=== PATIENT | female | born 1930 | race Caucasian/White ===

== ENCOUNTER 2016-04-19 10:27 | Emergency (ER) | payer MEDICARE ==
[2016-04-19 10:40] VITALS: TEMP 98.3; BMI 32.3
[2016-04-19] MEDS ORDERED: HYDROCODONE 5 MG/ACETAMIN 325 MG TAB PO ONE (10:45)
--- NOTE | 2016-04-19 10:47 | EDPRACDOC ---
- General Chief Complaint: Facial Injury Stated Complaint: FALL: NOSE INJURY Time Seen by Provider: 04/19/16 10:44 - History of Present Illness Onset: 0800 HPI: TRIPPED; FELL AND INJURED NOSE; NO LOC; NO ANTICOAGS Pain Severity: Reports: Mild Injuries/Pain Location: Reports: face Reason for Fall: Reports: lost balance, tripped Loss of Consciousness: no loss of consciousness Associated Symptoms (Fall): Reports: denies symptoms Allergies/Adverse Reactions: Allergies Penicillins Allergy (Mild, Verified 04/19/16 10:33) RAsh oxycodone HCl [From Percocet] Allergy (Verified 04/19/16 10:33) Rash-Generalized tramadol Allergy (Verified 04/19/16 10:33) Nausea/Vomiting Home Medications: Ambulatory Orders Atenolol 25 mg PO DAILY 12/07/14 Olmesartan [Benicar] 20 mg PO DAILY 12/07/14 Pregabalin [Lyrica] 150 mg PO BID 12/07/14 Simvastatin 10 mg PO HS 12/07/14 Acetaminophen [Arthritis Pain Relief] 1,300 mg PO BID PRN 03/03/15 Calcium Carbonate/Vitamin D3 [Calcium 600-Vit D3 800 Tablet] 1 each PO DAILY Diphenhydramine HCl [Ez Nite Sleep] 25 mg PO HS 03/03/15 Flaxseed Oil 1,000 mg PO DAILY 03/03/15 Multivit-Min/FA/Lycopene/Lut [Centrum Silver Tablet] 1 each PO DAILY 03/03/15 Naproxen Sodium [Aleve] 220 mg PO BID PRN 03/03/15 Aspirin [Aspirin EC] 81 mg PO DAILY 04/19/16 Azelastine HCl 2 spray CHRIS BID 04/19/16 Hydrocodone Bit/Acetaminophen [Lortab 5/325] 1 tab PO Q6H PRN #14 tab 04/19/16 Meclizine HCl 12.5 mg PO TID 04/19/16 ED Past Medical History - History Reviewed Yes Nurses notes reviewed and agree except as marked - Patient Medical History Cardiac History: Reports: Hypertension, Hypercholesterolemia, Valvular Heart Disease Respiratory History: Reports: COPD (CHRONIC BRONCHITIS), Pneumonia (2012) GI/ History: Reports: Urinary Tract Infection, Gastroesophageal Reflux, Pancreatitis Musculoskeletal History: Reports: Arthritis, Osteoarthritis Psychological History: Reports: Depression (after , off med now), Anxiety. 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 Back surgery. 2nd toe L foot removed.) - Family Medical History Reports: Cancer (Father: cancer unknown site), Cardiac Disorders (Mother: CHF.) . Denies: Hypertension, Diabetes, Stroke - Social Medical History Smoking Status: Former smoker Social History: Denies: Substance Use Disorder EDM Review of Systems - Review of Systems ROS Negative Except as Marked: Yes All systems reviewed and were negative except as marked - Physical Exam Constitutional: Alert (Awake), No apparent distress Oriented to: Time, Person, Place Last recorded Vital Signs: Last Vital Signs Temp 98.3 F 04/19/16 10:33 Pulse 78 04/19/16 10:33 Resp 20 04/19/16 10:33 BP 190/91 H 04/19/16 10:33 Pulse Ox 96 04/19/16 10:33 Oxygen Pulse Oxygen Saturation 96 O2 Device Room Air Oxygen Flow Rate Fraction of Inspired Oxygen ( FIO2) - HEENT Head: Normal ( normocephalic) Eye Exam: Normal (PERRL, EOMI, Sclera white) Oropharynx: Normal (Pharynx:Moist without exudate,Gums-no swelling) Tympanic Membrane: Normal ENT EAC: Normal TMJ: Normal Nose: Swelling Neck: Normal (FROM, trachea at midline) - Respiratory/Cardiovascular Respiratory: Normal - CTA (BBS clear to auscultation without adventitious sounds ) Cardiovascular: Normal (RRR without murmur, gallop or rub) - GI Auscultation: Normal (NABS) Palpation: Normal (Soft,No rebound or guarding, non distended) Tenderness: Non tender Bhardwaj's Sign: Negative - Musculoskeletal Back: Normal (Non-Tender) Extremities: Normal (Normal tone, Pulses 2+ No cyanosis or edema, FROM) - Integumentary Skin: Normal, Warm, Dry Lymphatics: Normal (no adenopathy) - Neurologic Memory Impaired: Normal Motor Function: Normal (Normal tone, Pulses 2+ No cyanosis or edema, FROM) Cranial Nerve: Normal (CN II-X11 intact sensation, strength 5/5) Cerebellar: Normal Mood Description: Normal Perception: Normal Decision Time to Discharge: 11:51 - Departure Yes I personally saw and evaluated the patient. Disposition: Home Condition: Good Final Diagnosis: NASAL FX Instructions: Nasal Fracture (ED) Education/Counseling Given To: Patient, Family Member Education/Counseling Given Regarding: Diagnosis, Treatment, Prognosis Referrals: Reji Phillips II, MD [Primary Care Provider] - One Week Prescriptions: New Hydrocodone Bit/Acetaminophen [Lortab 5/325] 1 tab PO Q6H PRN #14 tab PRN Reason: Pain No Action Pregabalin [Lyrica] 150 mg PO BID Atenolol 25 mg PO DAILY Simvastatin 10 mg PO HS Olmesartan [Benicar] 20 mg PO DAILY Naproxen Sodium [Aleve] 220 mg PO BID PRN PRN Reason: Pain Flaxseed Oil 1,000 mg PO DAILY Multivit-Min/FA/Lycopene/Lut [Centrum Silver Tablet] 1 each PO DAILY Acetaminophen [Arthritis Pain Relief] 1,300 mg PO BID PRN PRN Reason: Pain Diphenhydramine HCl [Ez Nite Sleep] 25 mg PO HS Calcium Carbonate/Vitamin D3 [Calcium 600-Vit D3 800 Tablet] 1 each PO DAILY Meclizine HCl 12.5 mg PO TID Aspirin [Aspirin EC] 81 mg PO DAILY Azelastine HCl 2 spray CHRIS BID
--- NOTE | 2016-04-19 11:43 | DIRPT ---
CLINICAL DATA: Tripped over coffee table 8 a.m. this morning, fall, neck pain EXAM: CERVICAL SPINE - COMPLETE 4+ VIEW COMPARISON: 07/24/2011 FINDINGS: Five views of the cervical spine submitted. No acute fracture. There is mild anterior spurring lower endplate of C2 and C3 vertebral body. Again noted about 4 mm anterolisthesis C3 on C4 vertebral body. Stable disc space flattening at C3-C4 level. Again noted moderate disc space flattening at C4-C5 level. Mild anterior spurring lower endplate of C4. There is moderate disc space flattening with mild anterior spurring at C5-C6 level. There is minimal about 2 mm anterolisthesis C6 on C7 vertebral body. Mild to moderate disc space flattening at C6-C7 level. No prevertebral soft tissue swelling. Cervical airway is patent. Mild degenerative changes C1-C2 articulation. IMPRESSION: No acute fracture. Again noted about 4 mm anterolisthesis C3 on C4 vertebral body. There is a about 2 mm anterolisthesis C6 on C7 vertebral body. Multilevel degenerative changes as described above. No prevertebral soft tissue swelling. Electronically Signed By: Girish Decker M.D. On: 04/19/2016 11:40
--- NOTE | 2016-04-19 11:44 | DIRPT ---
CLINICAL DATA: Status post fall. Nose pain. EXAM: NASAL BONES - 3+ VIEW COMPARISON: None. FINDINGS: There is a mildly displaced left nasal bone fracture. There is no other fracture. The paranasal sinuses are clear. IMPRESSION: Mildly displaced left nasal bone fracture. Electronically Signed By: Ernestine Montejo On: 04/19/2016 11:41
[2016-04-19 12:00] VITALS: BP 153/71; PULSE 67
== END 2016-04-19 12:05 | disposition home or self-care (01) ==
LOC: ED 10:27
DX: S02.2XXA Fracture of nasal bones, initial encounter for closed fracture (principal); W01.0XXA Fall on same level from slipping, tripping and stumbling without subsequent striking against object, initial encounter; Y93.9 Activity, unspecified
CPT/HCPCS: 70160; 72050; 99284; A9270; J3490